=== PATIENT | female | born 1950 | race Caucasian/White ===

== ENCOUNTER 2018-11-14 18:45 | Emergency (ER) | payer MEDICAID ==
[~2018-11-14] VITALS: Ht 162.6 cm; Wt 61.2 kg
[2018-11-14 19:15] VITALS: BP_SYST 130
--- NOTE | 2018-11-14 19:25 | NUR ---
Patient triaged and placed in waiting room. VSS and patient appears in no acute distress at this time. Accompanied by STAFF FROM [facility], awaiting available bed, and MD notified of need for MSE.
--- NOTE | 2018-11-14 19:48 | NUR ---
Patient to ER bed h1 for evaluation. Side rails up.
--- NOTE | 2018-11-14 20:05 | NUR ---
Pt presents to ED referred by PMD due to postive PPD test and negative chest x ray. Pt denies recent travel/cough/fever/sore throat/runny nose/n/v/d. No other injuries/complaints per pt/noted. Will continue to monitor.
--- NOTE | 2018-11-14 21:00 | NUR ---
ER Dr. Whitley at bedside examining patient.
--- NOTE | 2018-11-14 21:13 | NUR ---
Patient given written and verbal discharge instructions and verbalizes understanding. ER MD Whitley discussed with patient the results and treatment provided. Patient in stable condition. ID arm band removed. Rx of Isoniazid given. Patient educated on pain management and to follow up with PMD. Pain Scale 0. Opportunity for questions provided and answered. Medication side effect fact sheet provided.
[2018-11-14 21:19] VITALS: BP_SYST 124
== END 2018-11-14 21:19 | disposition home or self-care (01) ==
LOC: SED 18:45
DX: R76.11 Nonspecific reaction to tuberculin skin test without active tuberculosis (principal); I10 Essential (primary) hypertension; E03.9 Hypothyroidism, unspecified; Z88.5 Allergy status to narcotic agent
CPT/HCPCS: 99283

== ENCOUNTER 2019-01-09 13:52 | Emergency (ER) | payer MEDICAID ==
[~2019-01-09] VITALS: Ht 160 cm; Wt 68.0 kg
[2019-01-09 13:56] VITALS: BP_SYST 142
[2019-01-09] MEDS ORDERED: IBUPROFEN 600 MG TABLET PO ONE (15:00)
[2019-01-09 15:19] LABS: BASOPHILS % (AUTO) 0.1 % (0.0-2.0); HEMATOCRIT 38.5 % (36-48); HEMOGLOBIN 12.9 g/dL (12.0-16.0); LYMPHOCYTES # (AUTO) 1.5 K/uL (1.0-5.5); LYMPHOCYTES % (AUTO) 20.2 % (20.5-51.5); MEAN CORPUSCULAR HEMOGLOBIN 31 pg (27-31); MEAN CORPUSCULAR HGB CONC 34 % (32-36); MEAN CORPUSCULAR VOLUME 93 fL (79.0-98.0); MONOCYTES # (AUTO) 0.5 K/uL (0.0-1.0); MONOCYTES % (AUTO) 6.5 % (1.7-9.3); NEUTROPHILS # (AUTO) 5.4 K/uL (1.8-7.7); NEUTROPHILS % (AUTO) 73.2 % (40.0-70.0); PLATELET COUNT (AUTO) 202 K/uL (130-430); RED BLOOD CELL COUNT(AUTO) 4.12 MIL/uL (4.2-6.2); RED CELL DISTRIBUTION WIDTH 13.2 % (9.0-15.0); WHITE BLOOD COUNT (AUTO) 7.4 K/uL (4.8-10.8)
[2019-01-09 15:44] LABS: CALCIUM 9.7 mg/dL (8.4-11.0); CREATININE 1.1 mg/dL (0.55-1.30); POTASSIUM 3.7 mmol/L (3.5-5.1)
[2019-01-09 15:49] LABS: ALBUMIN 3.6 g/dL (3.4-4.8); TOTAL BILIRUBIN 0.4 mg/dL (0.0-1.0)
[2019-01-09] MEDS ORDERED: LORazepam 2 MG/ML VIAL (FOR ER USE) IM ONE (16:15)
[2019-01-09 18:49] VITALS: BP_SYST 107
== END 2019-01-09 18:49 | disposition home or self-care (01) ==
LOC: SED 13:52
DX: R25.1 Tremor, unspecified (principal); I10 Essential (primary) hypertension; E07.9 Disorder of thyroid, unspecified; Z88.5 Allergy status to narcotic agent
CPT/HCPCS: 36415; 70450; 71045; 80053; 83735; 85025; 93005; 96372; 99284; J2060